=== PATIENT | male | born 1955 | race Caucasian/White ===

== ENCOUNTER 2017-06-02 06:53 | Emergency (ER) | payer BC ==
--- NOTE | 2017-06-02 07:08 | DR.GENAD ---
HPI - PCP Primary Care Physician: PAGE - Complaint/Symptoms Chief Complaint Doctors Comments: Patient presents with feeling of foreign body in throat. He has tried to cough it up with got blood tinged sputum. He denies being a smoker or drink alcohol. He denies cardiopulmonary disease. Chief Complaint:: PT. STATES HE WOKE UP THIS MORNING AND FELT THOUGH HE HAD SOMETHING HUNG IN HIS THROAT. PT. STATED HE WENT TO CLEAR HIS THROAT AND COUGHED UP SOME SALIVA AND THERE WAS BLOOD IN IT. PT. STATES HIS THROAT IS PAINFUL. PT. WAS ABLE TO DRINK SOME WATER AND KEEP IT DOWN. - Source History Provided: Patient - Mode of Arrival Mode of Arrival: Ambulatory - Timing Onset of Chief Complaint: 06/02/17 PMH - PMH Past Medical History: Yes Past Medical History: Hypertension Past Surgical History: Yes Surgical History: Other Past Surgical History Comment: BACK SURGERY, SALIVA GLAND REMOVED - Family History History of Family Medical Conditions: No - Social History Does patient currently use any type of tobacco product: No Have you used tobacco products in the last 12 months: No Type of Tobacco Use: None Does any household member use tobacco: No Alcohol Use: Occasionally Do you use any recreational Drugs:: No Lives With: Spouse Lives Where: Home - infectious screening In the last 2 months have you had wt loss of >10#?: NO Have you had fever, night sweats or hemotysis?: No Have you traveled outside the country in the last 6 months?: No Isolation: Standard ROS - Review of Systems Eyes: No Symptoms Reported ENTM: No Symptoms Reported Respiratoy: No Symptoms Reported Cardiovascular: No Symptoms Reported Gastrointestinal/Abdominal: No Symptoms Reported Genitourinary: No Symptoms Reported Neurological: No Symptoms Reported Musculoskeletal: No Symptoms Reported Integumentary: No Symptoms Reported Hematologic/Lymphatic: No Symptoms Reported Endocrine: No Symptoms Reported Psychiatric: No Symptoms Reported All Other Systems: Reviewed and Negative PE - Vital Signs Vitals: Pulse Rate [Left Brachial] 81 Pulse Rate 86 Respiratory Rate 16 Blood Pressure [Left Arm] 156/82 Blood Pressure 170/100 O2 Sat by Pulse Oximetry 98 - General Limitations: No Limitations General Appearance: Alert, In No Apparent Distress - Head Head Exam: Normal Inspection, Atraumatic - Eyes Eye exam: Normal Appearance, PERRL, EOMI - ENT ENT Exam: Normal Exam External Ear Exam: Normal External Inspection TM/Canal Exam: Bilateral Normal Nose Exam: Normal Nose Exam Mouth Exam: Normal Inspection Throat Exam: Normal Inspection - Neck Neck Exam: Normal Inspection - Chest Chest Inspection: Normal Inspection, Symmetric Chest Wall Rise - Respiratory Respiratory Exam: Normal Lung Sounds Bilat Respiratory Exam: Bilateral Clear to Auscultation - Cardiovascular Cardiovascular Exam: Regular Rate, Normal Rhythm - Abdominal Exam Abdominal Exam: Normal Inspection, Normal Bowel Sounds Abdominal Tenderness: negative: RUQ, RLQ, LUQ, LLQ, Epigastrium, Suprapubic, Diffuse, Mild, Moderate, Severe, Other - Extremities Extremities Exam: Normal Inspection, Full ROM - Back Back Exam: Normal Inspection, Full ROM - Neurologic Neurological Exam: Alert, Oriented X3, CN II-XII Intact - Psychiatric Psychiatric Exam: Normal Affect, Normal Mood - Skin Skin Exam: Warm, Dry, Intact ROR - Labs Reviewed Result Diagrams: 06/02/17 07:15 06/02/17 07:15 Laboratory: WBC 9.4 X10^3/uL (3.6-10.0) 06/02/17 07:15 RBC 4.81 X10^6/uL (4.7-6.0) 06/02/17 07:15 Hgb 15.5 g/dL (13.5-18.0) 06/02/17 07:15 Hct 44.3 % (42.0-54.0) 06/02/17 07:15 MCV 92.1 fL (80.0-100.0) 06/02/17 07:15 MCH 32.3 pg (27.0-34.0) 06/02/17 07:15 MCHC 35.0 g/dL (33.0-35.0) 06/02/17 07:15 RDW 12.5 % (11.6-16.5) 06/02/17 07:15 Plt Count 237 X10^3/uL (150.0-450.0) 06/02/17 07:15 MPV 7.7 fL (7.4-11.0) 06/02/17 07:15 Neut % 83.0 % (42.0-75.0) H 06/02/17 07:15 Lymph % 8.9 % (21.0-51.0) L 06/02/17 07:15 [place] % 6.8 % (0.0-13.0) 06/02/17 07:15 Eos % 0.7 % (0.9-2.9) L 06/02/17 07:15 Baso % 0.6 % (0.2-1.0) 06/02/17 07:15 Neut # 7.8 x10^3/uL (2.2-4.8) H 06/02/17 07:15 Lymph # 0.8 X10^3/uL (1.3-2.9) L 06/02/17 07:15 [place] # 0.6 x10^3/uL (0.3-0.8) 06/02/17 07:15 Eos # 0.1 x10^3/uL (0.0-0.2) 06/02/17 07:15 Baso # 0.1 X10^3/uL (0.0-0.1) 06/02/17 07:15 Absolute Nucleated RBC 0.0 /100WBC 06/02/17 07:15 INR Target Range - 06/02/17 07:15 INR 0.93 (0.8-1.3) 06/02/17 07:15 PTT 26.7 SECONDS (22.9-36.5) 06/02/17 07:15 PTT Comment - 06/02/17 07:15 D-Dimer < 100 ng/mL (0-400) 06/02/17 07:15 Sodium 140 mmol/L (136-145) 06/02/17 07:15 Corrected Sodium 141 mmol/L (136-145) 06/02/17 07:15 Potassium 4.3 mmol/L (3.5-5.1) 06/02/17 07:15 Chloride 102 mmol/L (98-107) 06/02/17 07:15 Carbon Dioxide 25.5 mmol/L (21-32) 06/02/17 07:15 BUN 13 mg/dL (7-18) 06/02/17 07:15 Creatinine 1.09 mg/dL (0.70-1.30) 06/02/17 07:15 Est GFR (MDRD) Af Amer > 60 (>60) 06/02/17 07:15 Est GFR (MDRD) Non-Af > 60 (>60) 06/02/17 07:15 Glucose 133 mg/dL (65-99) H 06/02/17 07:15 Calcium 9.4 mg/dL (8.5-10.1) 06/02/17 07:15 Streptococcus Screen Negative (NEGATIVE) 06/02/17 07:20 - XRAY XRAY Interpreted by: Radiologist (CT Chest:Small lung nodule in the right middle lobe and on image number 55 of series 3 which measures 4 mm. This can be followed up in 6 months for assurance. There is no consolidation, effusion or pneumothorax. No other cardiopulmonary abnormalities are appreciated. Recommend follow up with CT imaging of the neck with IV contrast on an outpatient basis for improved inspectiongiven the patient's clinical symptoms in order to exclude masses, nodes or other soft tissue lesions of the neck.) - Diagnosis Discharge Problem: Esophagitis Pharyngitis Qualifiers: Pharyngitis/tonsillitis etiology: other specified organisms Qualified Code(s): J02.8 - Acute pharyngitis due to other specified organisms - Discharge Plan Condition: Stable - Follow ups/Referrals Follow ups/Referrals: DAVIE DE LUNA [Primary Care Provider] - 3 days - Instructions
[2017-06-02 07:10] VITALS: BMI 29.8
[2017-06-02 07:25] LABS: BASOPHILS # (AUTO) 0.1 X10^3/uL (0.0-0.1); BASOPHILS % (AUTO) 0.6 % (0.2-1.0); EOSINOPHILS # (AUTO) 0.1 x10^3/uL (0.0-0.2); EOSINOPHILS % (AUTO) 0.7 % (0.9-2.9); HEMATOCRIT 44.3 % (42.0-54.0); HEMOGLOBIN 15.5 g/dL (13.5-18.0); LYMPHOCYTES # (AUTO) 0.8 X10^3/uL (1.3-2.9); LYMPHOCYTES % (AUTO) 8.9 % (21.0-51.0); MEAN CORPUSCULAR HEMOGLOBIN 32.3 pg (27.0-34.0); MEAN CORPUSCULAR VOLUME 92.1 fL (80.0-100.0); MEAN PLATELET VOLUME 7.7 fL (7.4-11.0); MONOCYTES # (AUTO) 0.6 x10^3/uL (0.3-0.8); MONOCYTES % (AUTO) 6.8 % (0.0-13.0); NEUTROPHILS # (AUTO) 7.8 x10^3/uL (2.2-4.8); PLATELET COUNT 237 X10^3/uL (150.0-450.0); RED BLOOD COUNT 4.81 X10^6/uL (4.7-6.0); RED CELL DISTRIBUTION WIDTH 12.5 % (11.6-16.5); WHITE BLOOD COUNT 9.4 X10^3/uL (3.6-10.0)
[2017-06-02 07:31] LABS: BLOOD UREA NITROGEN 13 mg/dL (7-18); CALCIUM 9.4 mg/dL (8.5-10.1); CARBON DIOXIDE 25.5 mmol/L (21-32); CHLORIDE 102 mmol/L (98-107); COR NA(FOR HYPERGLY) 141 mmol/L (136-145); CREATININE 1.09 mg/dL (0.70-1.30); SODIUM 140 mmol/L (136-145); eGFR BLACK RACES > 60 (>60); eGFR NON BLACK RACES > 60 (>60)
[2017-06-02 07:56] VITALS: BP 156/82
--- NOTE | 2017-06-02 07:56 | CT ---
HISTORY: Chest pain. Throat bleeding. Comparison: None available. Technique/exam: NONCONTRAST CHEST CT EXAM. Axial noncontrast chest CT images were performed with sagi ttal and coronal reformatted CT images of the chest. Findings: The thoracic inlet is unremarkable. The heart is normal in size without a pericardial effusion. There is a small hiatal hernia observed. There is no evidence for CHF. No lung lesions or pathologic adeno reza is seen. There is a small lung nodule in the right middle lobe and on image number 55 of series 3 which measures 4 mm. This can be followed up in 6 months for assurance. There is no consolidation, effusion, or pneumothorax. No other cardiopulmonary abnormalities are appreciated. The upper abdomen shows no acute abnormality. There is no acute fracture or destructive lytic bony lesion. Recommend f ollow-up with CT imaging of the neck with IV contrast on an outpatient basis for improved inspection, given these patient's clinical symptoms in order to exclude masses, nodes, or other lesions of the n eleni. Impression: Small lung nodule in the right middle lobe and on image number 55 of series 3 which measu res 4 mm. This can be followed up in 6 months for assurance. There is no consolidation, effusion, or pneumothorax. No other cardiopulmonary abnormalities are appreciated. Recommend follow-up with CT pineda ging of the neck with IV contrast on an outpatient basis for improved inspection, given these patient 's clinical symptoms in order to exclude masses, nodes, or other soft tissue lesions of the neck. Reported By:
[2017-06-02] MEDS ORDERED: LEVSIN/MAALOX/LIDOC VISC PO ONE (08:01)
[2017-06-02] MEDS ORDERED: LEVSIN/MAALOX/LIDOC VISC ONE (08:02)
== END 2017-06-02 08:21 | disposition home or self-care (01) ==
LOC: ER 06:53
DX: K20.9 Esophagitis, unspecified (principal); J02.8 Acute pharyngitis due to other specified organisms
CPT/HCPCS: 36415; 71250; 80048; 85025; 85378; 85610; 85730; 87070; 87880; 99282; 99283